=== PATIENT | female | born 1950 | race Caucasian/White ===

== ENCOUNTER 2025-01-29 10:50 | Inpatient (IN) | payer MEDICARE ==
[~2025-01-29] VITALS: Ht 162.5 cm; Wt 71.7 kg
[2025-01-29] VITALS (15 sets, daily range): BP systolic 82–144; BP diastolic 30–99
[~2025-01-29 10:50] MED LIST: AIRSUPRA 90-810.7 GM INH; ELIQUIS5 M1 PO; FAMOTIDINE20 M1 PO; FUROSEMIDE20 M1 PO; METOPROLOL SUCC25 M2 PO; METOPROLOL SUCC50 M1 PO; MIDODRINE HCL10 MG PO; MIDODRINE HCL5 M1 PO; MONTELUKAST SOD10 MG PO; NATURE'S BLEND F1 MG PO; SODIUM BICARBO650 MG PO; TIZANIDINE2 MG PO; VITAMIN B1250 MCG PO; ZETIA10 MG PO
[2025-01-29] MEDS ORDERED: SODIUM CHLORIDE 0.9% 1,000 ML IV ONE (10:55)
[2025-01-29 11:06] LABS: BASO # 0.1 10*3/uL (0.0-0.1); BASO % 0.8 % (0.0-1.0); EOS # 0.1 10*3/uL (0.0-0.4); EOS % 0.9 % (1.0-4.0); HEMATOCRIT 34.7 % (37.0-47.0); MEAN CELL VOLUME 106.1 fl (81.0-99.0); MEAN CORPUSCULAR HGB 33.9 pg (27.0-31.0); MEAN PLATELET VOLUME 9.9 fl (9.6-12.3); MONO # 0.7 10*3/uL (0.1-1.0); MONO % 8.8 % (3.0-9.0); NEUT # 5.3 10*3/uL (2.3-7.9); NEUT % 69.5 % (47.0-73.0); PLATELET COUNT AUTOMATED 199 10*3/uL (130-400); RED BLOOD COUNT 3.27 10*6/uL (4.10-5.10); WHITE BLOOD COUNT 7.6 10*3/uL (4.8-10.8)
[2025-01-29 11:27] LABS: BUN 47 mg/dl (9-23); CHLORIDE 92 mmol/L (98-107); POTASSIUM 4.8 mmol/L (3.4-5.1)
[2025-01-29 11:33] LABS: ETHYL ALCOHOL < 3.0 mg/dl (<3)
[2025-01-29] MEDS ORDERED: MIDODRINE HCL10 MG PO (12:30)
[2025-01-29] MEDS ORDERED: AZITHROMYCIN 250 ML IV ONE (13:55)
[2025-01-29] MEDS ORDERED: cefTRIAXone Sodium 1 GM/10 ML SYR IV ONE (13:55)
[2025-01-29] MEDS ORDERED: Magnesium Hydroxide 30 ML UDC PO PRN (14:40)
[2025-01-29] MEDS ORDERED: ACETAMINOPHEN 650 MG SUPP R PRN (14:40)
[2025-01-29] MEDS ORDERED: BISACODYL 5 MG TAB PO PRN (14:40)
[2025-01-29] MEDS ORDERED: BISACODYL 10 MG SUPP R PRN (14:40)
[2025-01-29] MEDS ORDERED: ACETAMINOPHEN 325 MG TAB PO PRN (14:40)
[2025-01-29] MEDS ORDERED: Albuterol Sulf/Ipratropium 3 ML VIAL NEB SCH (14:50)
[2025-01-29] MEDS ORDERED: Ondansetron Hydrochloride 4 MG/2 ML VIAL IV ONE (15:20)
[2025-01-29] MEDS ORDERED: EPINEPHrine Hydrochloride 1 MG/10 ML SYR IV ONE ×2 (15:58→18:35)
[2025-01-29] MEDS ORDERED: NOREPINEPHRINE BITARTRATE/D5W 250 ML IV SCH (16:00)
[2025-01-29] MEDS ORDERED: PROPOFOL 50 ML IV SCH (16:00)
[2025-01-29] MEDS ORDERED: Midodrine Hydrochloride 5 MG TAB PO SCH (16:00)
[2025-01-29] MEDS ORDERED: DEXTROSE 50% 25 GM/50 ML SYR IV ONE ×2 (16:02→18:35)
[2025-01-29] MEDS ORDERED: ALBUMIN 25% 50 ML IV PRN (16:05)
[2025-01-29] MEDS ORDERED: SODIUM CHLORIDE 0.9% 1,000 ML IV SCH (16:05)
[2025-01-29] MEDS ORDERED: MANNITOL 12.5 GM/50 ML VIAL IV SCH (16:05)
[2025-01-29 17:54] LABS: ABG O2 SATURATION 99.7 % (94.0-98.0)
[2025-01-29 18:03] LABS: ABG BASE EXCESS -16.1 mmol/L (-2.0-3.0); ARTERIAL BLOOD GAS PH 7.251 (7.350-7.450)
[2025-01-29 18:05] LABS: ARTERIAL BLOOD GAS PO2 494.5 mmHg (83.0-108.0)
[2025-01-29] MEDS ORDERED: Lidocaine Hydrochloride 2% 10 ML AMP IV ONE (18:35)
[2025-01-29] MEDS ORDERED: Amiodarone Hydrochloride 150 MG/3 ML VIAL IV ONE (18:35)
[2025-01-29] MEDS ORDERED: SODIUM BICARBONATE 50 MEQ/50 ML SYR IV ONE (18:35)
[2025-01-29] MEDS ORDERED: Amiodarone Hydrochloride 900 MG in DEXTROSE 5% 500 ML IV SCH (20:10)
[2025-01-29] MEDS ORDERED: ETOMIDATE 20 MG/10 ML VIAL IV ONE (20:27)
[2025-01-29] MEDS ORDERED: Midazolam Hydrochloride 5 MG/5 ML VIAL ONE (20:29)
[2025-01-29] MEDS ORDERED: VASOPRESSIN 100 ML IV SCH (20:30)
[2025-01-29] MEDS ORDERED: DOBUTamine 250 ML IV SCH (21:20)
[2025-01-29] MEDS ORDERED: Iodixanol 320 100 ML VIAL IV ONE (21:25)
[2025-01-29] MEDS ORDERED: GUAIFENESIN 600 MG TAB ER PO SCH (22:00)
[2025-01-29] MEDS ORDERED: APIXABAN 5 MG TAB PO SCH (22:00)
[2025-01-29] MEDS ORDERED: METOPROLOL SUCCINATE XR 50 MG TAB PO SCH (22:00)
[2025-01-29] MEDS ORDERED: Montelukast Sodium 10 MG TAB PO SCH (22:00)
[2025-01-29] MEDS ORDERED: Doxycycline Hyclate 100 MG in SODIUM CHLORIDE 0.9% 250 ML IV SCH (22:00)
[2025-01-29] MEDS ORDERED: Lactobacillus Acidophilus/LA 1 TAB TAB PO SCH (22:00)
[2025-01-30] MEDS ORDERED: SODIUM CHLORIDE 0.9% 1,000 ML BAG IV ONE (08:37)
[2025-01-30] MEDS ORDERED: FUROSEMIDE 20 MG TAB PO SCH (10:00)
[2025-01-30] MEDS ORDERED: Pantoprazole Sodium 40 MG VIAL IV SCH (10:00)
[2025-01-30] MEDS ORDERED: cefTRIAXone Sodium 1 GM in SYRINGE INFUSION 10 ML IV SCH (15:00)
== END 2025-01-29 21:58 | disposition short-term general hospital (02) | DRG 208 ==
LOC: ED 10:50 → EDHOLD 14:30 → ICCU 16:17 → EDHOLD 17:30
PROVIDERS: Internal Medicine; ADMIT Internal Medicine; ATTEND Internal Medicine
PROC: 0BH17EZ Insertion of Endotracheal Airway into Trachea, Via Natural or Artificial Opening (ICD-10-PCS; principal; 2025-01-29)
PROC: 5A1935Z Respiratory Ventilation, Less than 24 Consecutive Hours (ICD-10-PCS; 2025-01-29)
PROC: 02HV33Z Insertion of Infusion Device into Superior Vena Cava, Percutaneous Approach (ICD-10-PCS; 2025-01-29)
PROC: B548ZZA Ultrasonography of Superior Vena Cava, Guidance (ICD-10-PCS; 2025-01-29)
DX: J69.0 Pneumonitis due to inhalation of food and vomit (principal); G93.41 Metabolic encephalopathy; I46.9 Cardiac arrest, cause unspecified; N18.6 End stage renal disease; I50.23 Acute on chronic systolic (congestive) heart failure; J96.00 Acute respiratory failure, unspecified whether with hypoxia or hypercapnia; N39.0 Urinary tract infection, site not specified; J90 Pleural effusion, not elsewhere classified; E87.1 Hypo-osmolality and hyponatremia; I48.3 Typical atrial flutter; Z96.643 Presence of artificial hip joint, bilateral; K57.90 Diverticulosis of intestine, part unspecified, without perforation or abscess without bleeding; Z20.822 Contact with and (suspected) exposure to COVID-19; K21.9 Gastro-esophageal reflux disease without esophagitis; D53.9 Nutritional anemia, unspecified; I48.0 Paroxysmal atrial fibrillation; Z88.2 Allergy status to sulfonamides; Z79.899 Other long term (current) drug therapy; Z90.49 Acquired absence of other specified parts of digestive tract; Z98.42 Cataract extraction status, left eye; Z98.41 Cataract extraction status, right eye; Z99.2 Dependence on renal dialysis; Z84.1 Family history of disorders of kidney and ureter; Z83.3 Family history of diabetes mellitus; Z86.73 Personal history of transient ischemic attack (TIA), and cerebral infarction without residual deficits